=== PATIENT | female | born 1945 | race Caucasian/White ===

== ENCOUNTER 2022-05-27 11:03 | Emergency (ER) | payer MEDICARE ==
[2022-05-27 12:57] LABS: ESTIMATED GFR 98 mL/min (>60)
== END 2022-05-27 17:15 | disposition home or self-care (01) ==
LOC: JD.ED 11:03
DX: R10.11 Right upper quadrant pain (principal); E11.9 Type 2 diabetes mellitus without complications; Z86.16 Personal history of COVID-19
CPT/HCPCS: 36415; 76705; 76705-26; 80053; 81001; 83690; 83735; 85025; 86140; 99283; 99284